=== PATIENT | male | born 2000 | race Caucasian/White ===

== ENCOUNTER → 2024-08-24 | Outpatient (CLI) | payer MEDICAID ==
[2024-08-24 15:37] LABS: Basophils # (A) 0.06 X 10*3/uL (0.00-0.10); Basophils % (A) 1.6 %; Eosinophils % (A) 2.7 %; HGB 14.8 g/dL (13.0-17.0); Lymphocytes # (A) 1.15 X 10*3/uL (0.90-5.00); Lymphocytes % (A) 30.9 %; MCH 30.1 pg (27.0-32.0); MCHC 35.2 g/dL (32.0-37.0); MCV 85.5 FL (80.0-97.0); Mean Platelet Volume 9.6 FL (9.5-12.2); Monocytes # (A) 0.31 X 10*3/uL (0.20-1.00); Monocytes % (A) 8.3 %; NRBC Per 100 WBC 0 X 10*3/uL (0.00-0.01); Neutrophils # (A) 2.09 X 10*3/uL (1.80-7.70); Neutrophils % (A) 56.2 %; Platelet Count 223 X 10*3/uL (140-440); RBC 4.91 X 10*6/uL (4.40-5.60); RDW 12.8 % (11.5-14.5); WBC 3.72 X 10*3/uL (4.50-10.00)
== END | disposition home or self-care (01) ==
LOC: LABWHC1 10:25
PROVIDERS: ATTEND Family Medicine
DX: D72.819 Decreased white blood cell count, unspecified (principal)
CPT/HCPCS: 36415; 85025